=== PATIENT | female | born 1965 | race Caucasian/White ===

== ENCOUNTER 2019-02-22 12:12 | Emergency (ER) | payer BC ==
[~2019-02-22] VITALS: Ht 177.8 cm; Wt 77.1 kg
[2019-02-22] MEDS ORDERED: IBU800 MG PO (14:55)
== END 2019-02-22 16:21 | disposition home or self-care (01) ==
LOC: ER 12:12
DX: S62.394A Other fracture of fourth metacarpal bone, right hand, initial encounter for closed fracture (principal); W18.39XA Other fall on same level, initial encounter; Y93.89 Activity, other specified; Y92.89 Other specified places as the place of occurrence of the external cause; Y99.8 Other external cause status